=== PATIENT | female | born 2000 | race Two or more races ===

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

== ENCOUNTER 2020-11-16 14:21 | Emergency (ER) | payer OTHER ==
[2020-11-16 14:41] VITALS: BP 106/72; PULSE 96; TEMP 98.2; BMI 27.1
[2020-11-16] MEDS ORDERED: ACETAMINOPHEN 500 MG TABLET (FP) PO ONE (15:10)
[2020-11-16] MEDS ORDERED: ACETAMINOPHEN 500 MG TABLET (FP) ONE (15:37)
[2020-11-16 16:25] LABS: BASO % 0.2 % (0-2.0); EOS % 0.3 % (0-4.5); HEMATOCRIT 34.5 % (32.4-45.2); LYMPH % 25.5 % (8-40); MCH 31.6 pg (25.7-33.7); MCHC 34.7 g/dl (32.0-36.0); MEAN CELL VOLUME 91.3 fl (80-96); MONO % 4.7 % (3.8-10.2); NEUT % 69.3 % (42.8-82.8); PLATELET COUNT 271 10^3/uL (134-434); RBC 3.78 M/mm3 (3.60-5.2); RDW 12.2 % (11.6-15.6); WHITE BLOOD COUNT 10.5 K/mm3 (4.0-10.0)
[2020-11-16 16:46] LABS: CALCIUM 8.9 mg/dL (8.5-10.1)
[2020-11-16 16:47] LABS: BLOOD UREA NITROGEN 11.6 mg/dL (7-18)
[2020-11-16 16:50] LABS: CREATININE 0.6 mg/dL (0.55-1.3)
[2020-11-16 17:47] LABS: HCG,QUALITATIVE URINE Positive
[2020-11-16 17:51] LABS: EPI CELLS 15 /uL (0-25.1); HYALINE CASTS 1 /uL (0-3.1); PH,URINE 6.5 (5.0-8.0); URINE APPEARANCE CLEAR; URINE BACTERIA 1652 /uL (0-1359); URINE BILIRUBIN NEGATIVE (NEGATIVE); URINE COLOR YELLOW; URINE GLUCOSE (UA) NEGATIVE (NEGATIVE); URINE KETONE NEGATIVE (NEGATIVE); URINE LEUK ESTERASE 2+ (NEGATIVE); URINE NITRITE NEGATIVE (NEGATIVE); URINE PROTEIN NEGATIVE (NEGATIVE); URINE RBC 9 /uL (0-23.9); URINE UROBILINOGEN 0.2 mg/dL (0.2-1.0); URINE WBC 39 /uL (0-25.8)
== END 2020-11-16 18:30 | disposition home or self-care (01) ==
LOC: JER 14:21
DX: O23.41 Unspecified infection of urinary tract in pregnancy, first trimester (principal)
CPT/HCPCS: 36415; 76817-TC; 80048; 81003; 84702; 84703; 85025; 86850; 86900; 86901; 87086; 99284-25

== ENCOUNTER 2020-11-30 15:32 | Emergency (ER) | payer OTHER ==
[2020-11-30 15:45] VITALS: BP 100/72; PULSE 87; TEMP 98.1; BMI 26.2
[2020-11-30 18:33] LABS: EOS % 0.2 % (0-4.5); HEMOGLOBIN 12.2 GM/dL (10.7-15.3); LYMPH % 27.8 % (8-40); MCH 31.5 pg (25.7-33.7); MCHC 34.9 g/dl (32.0-36.0); MEAN CELL VOLUME 90.1 fl (80-96); MEAN PLT VOLUME 8.8 fl (7.5-11.1); MONO % 3.1 % (3.8-10.2); NEUT % 67.9 % (42.8-82.8); PLATELET COUNT 272 10^3/uL (134-434); RBC 3.89 M/mm3 (3.60-5.2); RDW 12.4 % (11.6-15.6); WHITE BLOOD COUNT 8.3 K/mm3 (4.0-10.0)
[2020-11-30 20:53] LABS: EPI CELLS 11 /uL (0-25.1); HYALINE CASTS 1 /uL (0-3.1); PH,URINE 7.5 (5.0-8.0); URINE APPEARANCE CLEAR; URINE BACTERIA 1177 /uL (0-1359); URINE BILIRUBIN NEGATIVE (NEGATIVE); URINE COLOR YELLOW; URINE GLUCOSE (UA) NEGATIVE (NEGATIVE); URINE KETONE NEGATIVE (NEGATIVE); URINE LEUK ESTERASE TRACE (NEGATIVE); URINE NITRITE NEGATIVE (NEGATIVE); URINE PROTEIN NEGATIVE (NEGATIVE); URINE RBC 8 /uL (0-23.9); URINE UROBILINOGEN 0.2 mg/dL (0.2-1.0); URINE WBC 16 /uL (0-25.8)
[2020-11-30] MEDS ORDERED: CEPHALEXIN MONOHYDRATE 500 MG CAPSULE (UD) PO ONE (21:14)
[2020-11-30] MEDS ORDERED: CEPHALEXIN MONOHYDRATE 500 MG CAPSULE (UD) ONE (21:22)
== END 2020-11-30 21:33 | disposition home or self-care (01) ==
LOC: JER 15:32
DX: O20.9 Hemorrhage in early pregnancy, unspecified (principal); O23.41 Unspecified infection of urinary tract in pregnancy, first trimester; Z3A.09 9 weeks gestation of pregnancy
CPT/HCPCS: 36415; 76801-TC; 81003; 84702; 85025; 86850; 86900; 86901; 87086; 99284-25

== ENCOUNTER 2021-01-01 12:28 | Emergency (ER) | payer OTHER ==
[2021-01-01 12:43] VITALS: BP 116/67; PULSE 103; TEMP 97.5; BMI 26.4
[2021-01-01] MEDS ORDERED: ACETAMINOPHEN 325 MG TABLET (FP) PO ONE (13:20)
[2021-01-01] MEDS ORDERED: ACETAMINOPHEN 325 MG TABLET (FP) ONE (13:24)
[2021-01-01 14:13] LABS: EPI CELLS >36 /uL (0-25.1); HYALINE CASTS 7 /uL (0-3.1); PH,URINE 8.5 (5.0-8.0); URINE APPEARANCE CLOUDY; URINE BACTERIA 5355 /uL (0-1359); URINE BILIRUBIN NEGATIVE (NEGATIVE); URINE COLOR YELLOW; URINE GLUCOSE (UA) NEGATIVE (NEGATIVE); URINE KETONE NEGATIVE (NEGATIVE); URINE LEUK ESTERASE 1+ (NEGATIVE); URINE NITRITE NEGATIVE (NEGATIVE); URINE PROTEIN 1+ (NEGATIVE); URINE RBC 19 /uL (0-23.9); URINE UROBILINOGEN 0.2 mg/dL (0.2-1.0); URINE WBC 71 /uL (0-25.8)
== END 2021-01-01 14:49 | disposition home or self-care (01) ==
LOC: JERFT 12:28
DX: O99.891 Other specified diseases and conditions complicating pregnancy (principal); M54.9 Dorsalgia, unspecified
CPT/HCPCS: 81003; 87086; 99283-25

== ENCOUNTER 2021-07-01 16:30 | Inpatient (IN) | payer OTHER ==
[~2021-07-01 16:30] MED LIST: BUTORPHANOL TARTRATE 1 MG/ML VIAL IVPUSH ONE
[2021-07-01] MEDS ORDERED: ELECTROLYTE-148 SOLN 1,000 ML IV SCH (17:35)
[2021-07-01] MEDS ORDERED: BUTORPHANOL TARTRATE 2 MG/ML VIAL ONE (17:49)
[2021-07-01] MEDS ORDERED: PROMETHAZINE HCL 25 MG/1 ML VIAL ONE ×2 (17:50→18:38)
[2021-07-01] MEDS ORDERED: OXYTOCIN 20 UNITS in 0.9% NS 20 UNIT/1,000 ML INFUS.BAG IV ONE (18:01)
[2021-07-01 18:10] LABS: BASO % 0.2 % (0-2.0); EOS % 0.5 % (0-4.5); HEMATOCRIT 31.6 % (32.4-45.2); HEMOGLOBIN 10.5 GM/dL (10.7-15.3); MCH 28.1 pg (25.7-33.7); MCHC 33.3 g/dl (32.0-36.0); MEAN CELL VOLUME 84.6 fl (80-96); MEAN PLT VOLUME 8.9 fl (7.5-11.1); MONO % 4.1 % (3.8-10.2); NEUT % 80.2 % (42.8-82.8); PLATELET COUNT 229 10^3/uL (134-434); RBC 3.74 M/mm3 (3.60-5.2); RDW 13.8 % (11.6-15.6); WHITE BLOOD COUNT 11.1 K/mm3 (4.0-10.0)
[2021-07-01 18:12] VITALS: BMI 32.3
[2021-07-01 18:25] LABS: INR 0.98 (0.83-1.09); PROTHROMBIN TIME (PATIENT) 11.3 SEC (9.7-13.0)
[2021-07-01 18:27] LABS: ACTIVATED PTT 27.6 SECONDS (25.2-36.5)
[2021-07-01 18:30] LABS: CALCIUM 8.8 mg/dL (8.5-10.1)
[2021-07-01 18:31] LABS: BLOOD UREA NITROGEN 5.5 mg/dL (7-18)
[2021-07-01 18:36] LABS: CREATININE 0.4 mg/dL (0.55-1.3)
[2021-07-01] MEDS ORDERED: BUTORPHANOL TARTRATE 1 MG/ML VIAL ONE (18:38)
[2021-07-01 18:55] LABS: CORD BASE EXCESS -3.2 mmol/L (0-2); CORD HCO3 22.3 mmHg (20-29); CORD PCO2 41.8 mmHg (30-78); CORD pH 7.345 (7.14-7.44)
[2021-07-01 18:57] LABS: CORD BASE EXCESS -3.7 mmol/L (0-2); CORD pH 7.299 (7.14-7.44)
[2021-07-01] MEDS ORDERED: BENZOCAINE 28 GM HEMORRHOIDAL OINTMENT TP PRN (19:08)
[2021-07-01] MEDS ORDERED: BISACODYL 10 MG SUPP.RECT RC PRN (19:08)
[2021-07-01] MEDS ORDERED: WITCH HAZEL 50% (TUCKS) 40 PAD/JAR PAD TP PRN (19:08)
[2021-07-01] MEDS ORDERED: METHYLERGONOVINE MALEATE 0.2 MG/1 ML AMP IM PRN (19:08)
[2021-07-01] MEDS ORDERED: BENZOCAINE 20% 57 GM BOTTLE TP PRN (19:08)
[2021-07-01] MEDS ORDERED: PROMETHAZINE HCL 25 MG/1 ML VIAL IVPUSH ONE (19:08)
[2021-07-01] MEDS ORDERED: oxyCODONE HCL 5 MG TABLET PO PRN (19:08)
[2021-07-01] MEDS ORDERED: ACETAMINOPHEN 325 MG TABLET (FP) PO PRN (19:08)
[2021-07-01] MEDS ORDERED: OXYTOCIN 20 UNITS in 0.9% NS 20 UNIT/1,000 ML INFUS.BAG IV SCH (19:15)
[2021-07-02] MEDS: IBUPROFEN 600 MG TABLET (FP) PO PRN ×3 (02:31→22:42)
[2021-07-02 09:01] LABS: BASO % 0.2 % (0-2.0); EOS % 0.4 % (0-4.5); HEMATOCRIT 25.9 % (32.4-45.2); HEMOGLOBIN 8.5 GM/dL (10.7-15.3); LYMPH % 19.5 % (8-40); MCH 28.3 pg (25.7-33.7); MEAN CELL VOLUME 85.8 fl (80-96); MEAN PLT VOLUME 9.5 fl (7.5-11.1); MONO % 6.9 % (3.8-10.2); PLATELET COUNT 210 10^3/uL (134-434); RBC 3.01 M/mm3 (3.60-5.2); RDW 14.2 % (11.6-15.6); WHITE BLOOD COUNT 11.1 K/mm3 (4.0-10.0)
[2021-07-02] MEDS ORDERED: SENNOSIDES/DOCUSATE COMBO (SENNA PLUS) TABLET (UD) PO PRN (22:00)
[2021-07-03] MEDS: IBUPROFEN 600 MG TABLET (FP) PO PRN (07:35)
[2021-07-03 10:59] VITALS: BP 129/87; PULSE 98; TEMP 98.3
== END 2021-07-03 11:50 | disposition home or self-care (01) | DRG 560 ==
LOC: JDEL 16:30 → JLDR 17:35 → J3W 20:06
PROVIDERS: ADMIT Obstetrics & Gynecology; ATTEND Obstetrics & Gynecology
PROC: 10E0XZZ Delivery of Products of Conception, External Approach (ICD-10-PCS; principal; 2021-07-01)
PROC: 0W8NXZZ Division of Female Perineum, External Approach (ICD-10-PCS; 2021-07-01)
DX: O80 Encounter for full-term uncomplicated delivery (principal); Z3A.39 39 weeks gestation of pregnancy; Z37.0 Single live birth
CPT/HCPCS: 0241U-QW; 36415; 36600; 59025; 59409; 76819-TC; 80048; 82803; 85025; 85610; 85730; 86780; 86850; 86900; 86901; 87807; C9803-CS; U0003; U0005

== ENCOUNTER 2023-12-12 11:30 | Inpatient (IN) | payer OTHER ==
[2023-12-12] MEDS: ELECTROLYTE-148 SOLN 1,000 ML IV SCH (13:30)
[2023-12-12 13:57] VITALS: BMI 33.3
[2023-12-12] MEDS ORDERED: OXYTOCIN 30 UNITS in 0.9% NS 30 UNIT/500 ML INFUS.BAG IVPB ONE (13:57)
[2023-12-12] MEDS: OXYTOCIN 30 UNITS in 0.9% NS 30 UNIT/500 ML INFUS.BAG IVPB SCH (14:00)
[2023-12-12 14:25] LABS: BASO % 0.1 % (0-2.0); EOS % 0.5 % (0-4.5); HEMATOCRIT 34.9 % (32.4-45.2); HEMOGLOBIN 11.6 GM/dL (10.7-15.3); LYMPH % 17.2 % (8-40); MCH 28.7 pg (25.7-33.7); MCHC 33.4 g/dl (32.0-36.0); MEAN PLT VOLUME 9.4 fl (7.5-11.1); MONO % 4.6 % (3.8-10.2); NEUT % 77.6 % (42.8-82.8); PLATELET COUNT 219 10^3/uL (134-434); RBC 4.06 M/mm3 (3.60-5.2); RDW 14.5 % (11.6-15.6); WHITE BLOOD COUNT 9.6 K/mm3 (4.0-10.0)
[2023-12-12 14:30] LABS: INR 0.93 (0.83-1.09); PROTHROMBIN TIME (PATIENT) 10.5 SEC (9.7-13.0)
[2023-12-12 14:33] LABS: ACTIVATED PTT 26.6 SECONDS (25.2-36.5)
[2023-12-12 14:43] LABS: POTASSIUM 4.3 mmol/L (3.5-5.1)
[2023-12-12 14:48] LABS: CREATININE 0.5 mg/dL (0.55-1.3)
[2023-12-12] MEDS ORDERED: FENTANYL/BUPIVACAINE/NS/PF - PCEA - 50 ML DISP.SYRIN EP ONE (14:48)
[2023-12-12] MEDS ORDERED: BUPIVACAINE HCL/PF 0.25% (2.5MG/ML) 10 ML VIAL ONE (15:03)
[2023-12-12] MEDS: FENTANYL/BUPIVACAINE/NS/PF - PCEA - 50 ML DISP.SYRIN EP SCH (15:30)
[2023-12-12] MEDS ORDERED: NALOXONE HCL 0.4 MG/ML VIAL IVPUSH PRN (15:47)
[2023-12-12] MEDS ORDERED: OXYTOCIN 20 UNITS in 0.9% NS 20 UNIT/1,000 ML INFUS.BAG IV ONE (16:09)
[2023-12-12] MEDS ORDERED: LIDOCAINE HCL 1% PRESERVATIVE FREE - 30ML VIAL ONE (16:33)
[2023-12-12] MEDS: OXYTOCIN 20 UNITS in 0.9% NS 20 UNIT/1,000 ML INFUS.BAG IV SCH (16:35)
[2023-12-12] MEDS ORDERED: oxyCODONE HCL 5 MG TABLET PO PRN (17:03)
[2023-12-12] MEDS ORDERED: METHYLERGONOVINE MALEATE 0.2 MG/1 ML AMP IM PRN (17:03)
[2023-12-12] MEDS ORDERED: WITCH HAZEL 50% (TUCKS) 40 PAD/JAR PAD TP PRN (17:03)
[2023-12-12] MEDS ORDERED: BISACODYL 10 MG SUPP.RECT RC PRN (17:03)
[2023-12-12] MEDS ORDERED: BENZOCAINE 28 GM HEMORRHOIDAL OINTMENT TP PRN (17:03)
[2023-12-12] MEDS ORDERED: BENZOCAINE 20% 57 GM BOTTLE TP PRN (17:03)
[2023-12-12 17:53] LABS: CORD BASE EXCESS -4.5 mmol/L (0-2); CORD HCO3 22.2 mmHg (20-29); CORD PCO2 46.2 mmHg (30-78); CORD pH 7.299 (7.14-7.44)
[2023-12-12 17:57] LABS: CORD BASE EXCESS -5.3 mmol/L (0-2); CORD HCO3 22.4 mmHg (20-29); CORD PCO2 50.8 mmHg (30-78); CORD pH 7.262 (7.14-7.44)
[2023-12-13 07:58] LABS: BASO % 0.1 % (0-2.0); EOS % 0.4 % (0-4.5); HEMOGLOBIN 9.2 GM/dL (10.7-15.3); LYMPH % 25.1 % (8-40); MCH 28.4 pg (25.7-33.7); MEAN CELL VOLUME 86.2 fl (80-96); MONO % 6.8 % (3.8-10.2); NEUT % 67.6 % (42.8-82.8); PLATELET COUNT 177 10^3/uL (134-434); RBC 3.25 M/mm3 (3.60-5.2); RDW 14.9 % (11.6-15.6); WHITE BLOOD COUNT 9.4 K/mm3 (4.0-10.0)
[2023-12-13] MEDS: PRENATAL VITAMINS W/ FOLIC ACID TABLET (FP) PO SCH (10:54)
[2023-12-13] MEDS: IBUPROFEN 600 MG TABLET (FP) PO PRN (11:35)
[2023-12-13 15:01] VITALS: RESP 18
[2023-12-13] MEDS ORDERED: SENNOSIDES/DOCUSATE COMBO (SENNA PLUS) TABLET (UD) PO PRN (22:00)
[2023-12-13] MEDS: ACETAMINOPHEN 325 MG TABLET (FP) PO PRN (23:38)
[2023-12-14 09:33] VITALS: BP 117/78; PULSE 86; TEMP 98
== END 2023-12-14 14:04 | disposition home or self-care (01) | DRG 560 ==
LOC: JDEL 11:30 → JLDR 13:00 → J3W 21:00
PROVIDERS: ADMIT Obstetrics & Gynecology; ATTEND Obstetrics & Gynecology
PROC: 10E0XZZ Delivery of Products of Conception, External Approach (ICD-10-PCS; principal; 2023-12-12)
DX: O80 Encounter for full-term uncomplicated delivery (principal); Z3A.39 39 weeks gestation of pregnancy; Z37.0 Single live birth
CPT/HCPCS: 36415; 36600; 59025; 59409; 80048; 82803; 85025; 85610; 85730; 86780; 86850; 86900; 86901; 87340